=== PATIENT | male | born 1975 | race Caucasian/White ===

== ENCOUNTER 2023-03-17 09:48 | Emergency (ER) | payer MEDICARE, OTHER ==
[~2023-03-17] VITALS: Ht 182 cm; Wt 98.0 kg
--- NOTE | 2023-03-17 11:07 | ED Upper Extremity ---
General Chief Complaint: Upper Extremity Stated Complaint: RIGHT SHOULDER PAIN Nursing Triage Note: PT AMB TO TRIAGE PT CO OF R SHOULDER INJURY, MONDAY WAS PUTTING CHILD IN CAR SEAT AND FELT AND HEARD TEARING AND RIPPING OF R SHOULDER RATES PAIN 08/08. PT HAS HAD EXTENSIVE SURGERY AND PROBLEMS W SHOULDER IN PAST Source: patient Exam Limitations: no limitations History of Present Illness Date Seen by Provider: March 17, 2023 Time Seen by Provider: 10:57 Initial Comments 47-year-old male presents the ED with complaints of right shoulder pain. He states that on Monday he was lifting his child in the car seat and felt a tearing sensation in his right shoulder. Reports pain in anterior shoulder and bicep. He has been using lidocaine patches and a muscle relaxer with minimal relief. Allergies and Home Medications Allergies Coded Allergies: Sulfa (Sulfonamide Antibiotics) (Verified Allergy, Unknown, 03/17/23) tramadol (Verified Allergy, Unknown, 03/17/23) Patient Home Medication List Home Medication List Reviewed: Yes Review of Systems Constitutional: no symptoms reported Musculoskeletal: joint pain Past Ebqujrq-Kvhfbj-Dyczer Hx Patient Social History Tobacco Use?: No Substance use?: No Alcohol Use?: No Pt feels they are or have been: No Immunizations Up To Date Influenza Vaccine Up-to-Date: No; Not Current First/Initial COVID19 Vaccinat: YES Past Medical History Surgery/Hospitalization HX: SHRAPNEL REMOVED FROM R SHOULDER, NECK AND BACK, TBI Physical Exam Vital Signs Vital Signs - First Documented 03/17/23 10:05 Temp 36.5 Pulse 73 Resp 18 B/P (MAP) 130/78 (95) Pulse Ox 99 Capillary Refill : Less Than 3 Seconds Height, Weight, BMI Height: '" Weight: lbs. oz. kg; 29.00 BMI Method: General Appearance: WD/WN, no apparent distress Neck: supple, normal inspection Cardiovascular: regular rate, rhythm Respiratory: lungs clear, normal breath sounds, no respiratory distress, no accessory muscle use Shoulder: normal inspection, limited ROM, pain, soft tissue tenderness; No swelling Neurologic/Psychiatric: alert, normal mood/affect Skin: normal color, warm/dry Progress/Results/Core Measures Results/Orders My Orders Orders - ALVA HUERTA APRN Shoulder, Right, 3 Views (03/17/23 11:04) Vital Signs/I&O Blood Pressure Mean: 95 Progress Progress Note : Progress Note Patient seen and evaluated, resting comfortably in recliner, no acute distress. Based on exam and symptoms, will obtain a x-ray of right shoulder. Patient will need an orthopedic referral to evaluate for MRI. Will also provide patient a sling for comfort. X-ray shows no acute finding. Results discussed with patient. Patient states that his doctor from the [place], Dr. Ontiveros, will be calling here to request an MRI. I informed patient that we cannot do an MRI of the shoulder from the ER since there is no emergent reason to do one, and that he will have to follow-up with orthopedics to be evaluated for an MRI. Discharge instructions and return precautions provided. Diagnostic Imaging Diagonstic Imaging: Xray Plain Films/CT/US/NM/MRI: other (shoulder) Comments [facility]NotesFirst [place], [place] NAME: SUHAIL GUERRA [facility] REC#: [id number] PT STATUS: DEP ER : [id number] PHYSICIAN: ALVA HUERTA APRN ADMIT DATE: 03/17/23/ER Signed Date of Exam:03/17/23 SHOULDER, RIGHT, 3 VIEWS INDICATION: Right shoulder pain. AP, oblique and transscapular views of the right shoulder are obtained. FINDINGS: No acute fracture or dislocation is identified. No abnormal lytic or sclerotic focus is seen, and there is no radiopaque foreign body. IMPRESSION: No acute abnormality. Dictated by: Dictated on workstation # [id number] Dict: 03/17/23 1140 Trans: 03/17/23 1343 [facility] [id number] Interpreted by: SILVINA CALIXTO MD Electronically signed by: SILVINA CALIXTO MD 03/17/23 1343 Departure Impression Primary Impression: Shoulder injury Qualified Codes: S49.91XA - Unspecified injury of right shoulder and upper arm, initial encounter Disposition: 01 HOME, SELF-CARE Condition: Stable Departure-Patient Inst. Decision time for Depature: 11:47 Referrals: NO,LOCAL PHYSICIAN (PCP) Primary Care Physician MARIE HOWARD MD Patient Instructions: Rotator Cuff Injury (DC) Add. Discharge Instructions: Follow-up with orthopedics to be evaluated for MRI. Call them today to schedule appointment. Continue using home medications as needed for pain. Wear the sling as needed for comfort. Follow-up with primary care provider. Return for severe pain, inability to move arm, or any other new, concerning, or worsening symptoms. All discharge instructions reviewed with patient and/or family. Voiced understanding. ALVA HUERTA APRN March 17, 2023 11:07
--- NOTE | 2023-03-17 11:42 | Diagnostic Imaging Report ---
INDICATION: Right shoulder pain. AP, oblique and transscapular views of the right shoulder are obtained. FINDINGS: No acute fracture or dislocation is identified. No abnormal lytic or sclerotic focus is seen, and there is no radiopaque foreign body. IMPRESSION: No acute abnormality. Dictated by: Dictated on workstation # [id number]
[2023-03-17 11:57] VITALS: BP 130/78
== END 2023-03-17 11:57 | disposition home or self-care (01) ==
LOC: ER 09:54
DX: S49.91XA Unspecified injury of right shoulder and upper arm, initial encounter (principal); Z28.311 Partially vaccinated for COVID-19; X50.0XXA Overexertion from strenuous movement or load, initial encounter
CPT/HCPCS: 73030